=== PATIENT | male | born 1975 | race Caucasian/White ===

== ENCOUNTER 2020-11-15 11:41 | Day surgery (SDC) | payer BC ==
[2020-11-14 13:28] VITALS: BMI 36.2
[~2020-11-15 11:41] MED LIST: LACTATED RINGERS 1,000 ML IV SCH
[2020-11-15 12:18] VITALS: TEMP 98.6
[2020-11-15] MEDS ORDERED: LIDOCAINE 1% (10MG/ML) FOR IV START INTRADERMA ONE (12:23)
[2020-11-15] MEDS ORDERED: PROPOFOL 10 MG/ML 20 ML VIAL IV ONE (13:12)
[2020-11-15] MEDS ORDERED: LIDOCAINE 1% INJ 10MG/ML (20 ML MDV) ONE (13:12)
--- NOTE | 2020-11-15 13:27 | P.PCN ---
Date of Procedure: 11/15/20 Procedure(s) Performed: BRIEF HISTORY: Patient is a 45-year-old pleasant white male scheduled for an elective colonoscopy as a part of evaluation of Hemoccult-positive stool PROCEDURE PERFORMED: Colonoscopy. PREOPERATIVE DIAGNOSIS: Hemoccult-positive stool. IV sedation per Anesthesia. PROCEDURE: After informed consent was obtained, the patient, was brought into the endoscopy unit. IV sedation was administered by Anesthesia under continuous monitoring. Digital rectal examination was normal. Initially the Olympus CF-160 flexible video colonoscope was then inserted in the rectum, gradually advanced into the cecum without any difficulty. Careful examination was performed as the scope was gradually being withdrawn. Ileocecal valve and the appendiceal orifice were visualized and appeared normal. Prep was excellent. Mucosa of the cecum, ascending colon, transverse colon, descending colon, sigmoid colon, and rectum appeared normal. Retroflexion was performed in the rectum and no lesions were seen. The patient tolerated the procedure well. IMPRESSION: Normal-appearing colon from rectum to cecum no evidence of colorectal neoplasia . RECOMMENDATIONS: Findings of this examination were discussed with the patient as well as his family. He was advised to have a repeat screening colonoscopy in 10 years..
[2020-11-15 13:50] VITALS: BP 123/83; PULSE 52; RESP 16
== END 2020-11-15 14:04 | disposition home or self-care (01) ==
LOC: ORWHC2ENDO 11:41
PROVIDERS: ATTEND Internal Medicine Gastroenterology
DX: R19.5 Other fecal abnormalities (principal); Z79.899 Other long term (current) drug therapy; D86.9 Sarcoidosis, unspecified
CPT/HCPCS: 45378; J2001; J2704